=== PATIENT | female | born 1980 | race American Indian/Alaskan Native ===

== ENCOUNTER 2017-08-23 10:51 | Emergency (ER) | payer OTHER, MEDICAID ==
[2017-08-23 10:51] VITALS: BMI 39.6
[2017-08-23 10:58] VITALS: PULSE 98; RESP 20; TEMP 99.1; O2SAT 99
[2017-08-23 11:01] VITALS: BP 101/71
--- NOTE | 2017-08-23 11:28 | C.PDOC ---
History Of Present Illness 36-year-old female presents to the ED for evaluation of numbness, tingling and cramping to her bilateral hands (left>right) which has been intermittent for three weeks. Patient states she was evaluated at a hospital in [place] two weeks ago and her CT Head result showed possible areas of demyelination." Patient has followed up with her doctor and is scheduled for an outpatient MRI. Patient was also advised to undergo bloodwork testing, which she has done. She presents to the ED today for evaluation of hand pain. She denies fever, chills, headache, dizziness, vision change, recent trauma/injury. Time Seen by Provider: 08/23/17 11:13 Chief Complaint (Nursing): Pain, Chronic History Per: Patient History/Exam Limitations: no limitations Onset/Duration Of Symptoms: Other (3 weeks ) Current Symptoms Are (Timing): Still Present Additional History Per: Patient Past Medical History Reviewed: Historical Data, Nursing Documentation, Vital Signs Vital Signs: Last Vital Signs Temp 99.1 F 08/23/17 10:54 Pulse 98 H 08/23/17 10:54 Resp 20 08/23/17 10:54 BP 101/71 08/23/17 10:54 Pulse Ox 99 08/23/17 12:53 - Medical History PMH: Asthma Denies: Chronic Kidney Disease Surgical History: No Surg Hx Family History: States: Unknown Family Hx - Social History Hx Tobacco Use: Yes (light smoker) Hx Alcohol Use: Yes Hx Substance Use: No - Immunization History Hx Tetanus Toxoid Vaccination: Yes Hx Influenza Vaccination: Yes Hx Pneumococcal Vaccination: No Review Of Systems Constitutional: Negative for: Fever, Chills Eyes: Negative for: Vision Change Musculoskeletal: Positive for: Hand Pain (left>right) Neurological: Positive for: Other (numbness and tingling to bilateral hands ). Negative for: Headache, Dizziness Physical Exam - Physical Exam Appears: Non-toxic, Other (in mild discomfort ) Skin: Normal Color, Warm, Dry Head: Atraumatic, Normacephalic Eye(s): bilateral: Normal Inspection Oral Mucosa: Moist Neck: Supple Chest: Symmetrical, No Deformity, No Tenderness Cardiovascular: Rhythm Regular, No Murmur Respiratory: Normal Breath Sounds, No Rales, No Rhonchi, No Wheezing Extremity: Normal ROM (of wrist and digits, bilaterally ), No Tenderness, Capillary Refill (less than 2 seconds ), No Deformity, No Swelling Pulses: Left Radial: Normal, Right Radial: Normal Neurological/Psych: Oriented x3, Normal Speech, Normal Cognition, No Normal Sensation (subjectively decreased sensation bilaterally), Other (4/5 motor strength) Gait: Steady ED Course And Treatment O2 Sat by Pulse Oximetry: 99 (on RA) Pulse Ox Interpretation: Normal Progress Note: Flexeril PO and Toradol IM given. On re-examination, patient is resting comfortably, showing no signs of distress and reports an improvement in her pain. Patient is stable for discharge. She is advised to follow up with her PMD and have MRI done within a timely manner for further evaluation Disposition Counseled Patient/Family Regarding: Diagnosis, Need For Followup, Rx Given - Disposition Referrals: [facility] [Outside] Disposition: HOME/ ROUTINE Disposition Time: 11:50 Condition: STABLE Additional Instructions: FOLLOW UP WITH YOUR DOCTOR IN 1-2 DAYS USE MEDICATIONS NEEDED HAVE YOUR OUTPATIENT MRI SOON POSSIBLE RETURN TO ER IF SYMPTOMS WORSEN Prescriptions: Cyclobenzaprine [Flexeril] 10 mg PO BID PRN #15 tab PRN Reason: Muscle Spasm Naproxen [Naprosyn] 1 tab PO BID PRN #25 tab PRN Reason: Pain Instructions: Paresthesias (DC) Forms: [employer] (Lithuanian) Print Language: JAMAICAN - Clinical Impression Clinical Impression: Paresthesia of both hands - Scribe Statement The provider has reviewed the documentation as recorded by the Scribe (Belen Rangel) Provider Attestation: All medical record entries made by the Scribe were at my direction and personally dictated by me. I have reviewed the chart and agree that the record accurately reflects my personal performance of the history, physical exam, medical decision making, and the department course for this patient. I have also personally directed, reviewed, and agree with the discharge instructions and disposition.
== END 2017-08-23 11:59 | disposition home or self-care (01) ==
LOC: C.ER 10:51
DX: R20.2 Paresthesia of skin (principal)
CPT/HCPCS: 96372; 99284; J1885